=== PATIENT | female | born 1955 | race Caucasian/White ===

== ENCOUNTER → 2022-08-22 10:23 | Outpatient (CLI) | payer MEDICARE, MEDICAID, SELFPAY ==
--- NOTE | 2022-08-22 | DI.ECHO.S_ITS ---
[place] [facility]---------+ [facility] +---------+ : : [address] : [address] : : : : [id number] : : : : Phone: [phone]---------+ Echocardiogram Report + + :Name: TIKI MCCLENDON Study Date: 08/22/2022 Height: 66 in : :[facility] ReadingLocation: Weight: 129 lb : : Gender: Female BSA: 1.7 m2 : :: 1955 Age: 67 yrs BP: 125/81 mmHg: :Reason For Study: HYPERTENSION HR: 60 : :Ordering Physician: BAILEY, : :RED Performed By: TRENTON DUEÑAS : :Referring: RED AVALOS : + + Interpretation Summary The left ventricle is normal in size. The ejection fraction is estimated to be 65-70%. The right ventricle is normal in size and function. There is mild mitral regurgitation. The IVC is of normal diameter and collapses greater than 50% with a sniff. This suggests a low right atrial pressure of 3 mm Hg. Procedure: A two-dimensional transthoracic echocardiogram with color flow and Doppler was performed. The study quality was technically adequate. There is no prior echocardiogram noted for this patient. The patient was in normal sinus rhythm during the exam. Left Ventricle: The left ventricle is normal in size. Left ventricular wall thickness is mildly increased. There is no echo evidence for significant left ventricular outflow tract obstruction. There is no thrombus. Left ventricular systolic function is normal. The ejection fraction is estimated to be 65-70%. There are no focal wall motion abnormalities. Diastolic parameters suggest a relaxation abnormality of the left ventricle, consistent with probable normal filling pressures. Right Ventricle: The right ventricle is normal in size and function. Atria: The left atrial size is normal. The right atrium is mildly dilated. There is no Doppler evidence for an interatrial shunt. Mitral Valve: The mitral valve leaflets appear mildly thickened, but open well. There is no mitral valve stenosis. There is mild mitral regurgitation. Aortic Valve: The aortic valve is trileaflet. The aortic valve opens well. There is no aortic valve stenosis. No aortic regurgitation is present. Tricuspid Valve: The tricuspid valve is normal in structure and function. There is trace tricuspid regurgitation. The right ventricular systolic pressure is estimated to be at least 16 mmHg based on an estimated right atrial pressure of 3 mm Hg. Pulmonic Valve: The pulmonic valve is not well visualized. There is trace pulmonic regurgitation. Great Vessels: The aortic root is normal size. The ascending aorta is normal in size. The inferior vena cava appeared normal. The IVC is of normal diameter and collapses greater than 50% with a sniff. This suggests a low right atrial pressure of 3 mm Hg. Pericardium/ Pleura There is no pericardial effusion. There is no pleural effusion. MMode/2D Measurements & Calculations LVIDd: 4.1 cm LVOT diam: 2.0 cm LVIDs: 2.3 cm Ao root diam: 3.2 cm FS: 43.9 % IVSd: 0.80 cm LVPWd: 1.1 cm LV cordova. diameter/BSA (cm/m^2): 2.5 LV sys. diameter/BSA (cm/m^2): 1.4 LA A2 area: 16.3 cm2 RA long axis: 4.9 cm LA A4 area: 10.4 cm2 LA length (vol): 5.3 cm LA vol: 27.3 ml LA vol index: 16.4 ml/m2 RVD1 (basal): 3.5 cm LVLs ap4: 5.7 cm LVLd ap2: 7.3 cm TAPSE_phl: 2.4 cm LVLs ap2: 5.6 cm Doppler Measurements & Calculations Ao V2 max: 164.0 cm/sec LVOT Max James: 161.0 cm/sec Ao V2 mean: 96.9 cm/sec LV V1 max P.4 mmHg Ao max P.0 mmHg LV V1 VTI: 32.4 cm Ao mean P.0 mmHg GABE(I,D): 3.0 cm2 Ao V2 VTI: 34.3 cm GABE(V,D): 3.1 cm2 sev ratio: 0.94 GABE indexed to BSA (cm^2/m^2): 1.8 MV E max james: 63.8 cm/sec TR max james: 182.0 cm/sec MV A max james: 70.7 cm/sec TR max P.2 mmHg MV E/A: 0.90 PA V2 max: 103.0 cm/sec Med Peak E' James: 5.0 cm/sec PA V2 mean: 73.7 cm/sec E/E' med: 12.7 PA mean P.0 mmHg Lat Peak E' James: 6.7 cm/sec PA pr(Accel): 9.3 mmHg E/E' lat: 9.6 E/e' average: 11.1 MV dec time: 0.26 sec SV(LVOT): 101.8 ml AV VR_phl: 0.98 GABE(VTI)/BSA_phl: 1.8 MV P1/2t-pr_phl: 76.0 msec Reading Physician:03:45 PM
== END ==
PROVIDERS: Referring Provider Internal Medicine Cardiovascular Disease; Visit Provider Internal Medicine Cardiovascular Disease
DX: I34.0 Nonrheumatic mitral (valve) insufficiency (principal); I10 Essential (primary) hypertension; R60.0 Localized edema
CPT/HCPCS: 93306

== ENCOUNTER → 2022-10-20 07:29 | Outpatient (CLI) | payer MEDICARE, MEDICAID, SELFPAY ==
[2022-10-20 08:47] LABS: HEMOLYSIS < 15 (0-50); Iron 159 ug/dL (37-170)
[2022-10-20 08:49] LABS: Creatinine Urine Random 13.4 mg/dL
[2022-10-20 08:50] LABS: Alanine Aminotransferase 22 IU/L (<35); Albumin 4.4 g/dL (3.5-5.0); Albumin Globulin Ratio 1.7 (1.0-2.8); Alkaline Phosphatase 61 U/L (38-126); Aspartate Aminotransferase 28 IU/L (14-36); BUN Creatinine Ratio 13.1 (6-22); Bilirubin Total 0.7 mg/dL (0.2-1.3); Blood Urea Nitrogen 8 mg/dL (7-17); Calcium 9.2 mg/dL (8.4-10.2); Carbon Dioxide 29 mmol/L (22-32); Chloride 101 mmol/L (98-107); Cholesterol 173 mg/dL (140-199); Estimated Glomerular Filt Rate > 60 mL/min (>60); Globulin 2.6 g/dL (1.7-4.1); Glucose 86 mg/dL (80-110); HDL Cholesterol 61 mg/dL (40-60); HEMOLYSIS < 15 (0-50); LDL Cholesterol Calculated 103 mg/dL (<100); Potassium 3.6 mmol/L (3.4-5.1); Sodium 138 mmol/L (137-145); Triglycerides 46 mg/dL (35-150)
[2022-10-20 08:58] LABS: Percent Iron Saturation 56 % (15-50); Total Iron Binding Capacity 286 ug/dL (265-497); Transferrin 212 mg/dL (206-381)
[2022-10-20 09:19] LABS: Ferritin 61 ng/mL (11-264)
[2022-10-20 09:29] LABS: Microalbumin Urine Random < 0.6 mg/dL (0-1.6)
[2022-10-20 09:34] LABS: Vitamin B12 906 pg/mL (239-931)
[2022-10-20 09:55] LABS: Add Manual Diff / Slide Review NO; Basophils Absolute Auto 0 /uL (0-100); Basophils Percent Auto 0.8 % (0-2); Eosinophils Absolute Auto 0 /uL (0-450); Hematocrit 41.2 % (36-46); Hemoglobin 13.9 g/dL (12.0-16.0); Lymphocytes Absolute Auto 1200 /uL (1100-4500); Lymphocytes Percent Auto 33.2 % (25-40); Mean Corpuscular HGB Conc 33.7 % (30-36); Mean Corpuscular Hemoglobin 29.8 PG (26-34); Mean Corpuscular Volume 88.3 fL (80-100); Monocytes Absolute Auto 400 /uL (0-900); Monocytes Percent Auto 10.8 % (3-14); Neutrophils Absolute Auto 2000 /uL (1500-7000); Neutrophils Percent Auto 54.2 % (50-75); Platelet Count 231 X10^3/uL (150-400); Red Blood Cell Count 4.67 X10^6/uL (4.0-5.2); Red Cell Distribution Width 12.8 % (11.6-14.8); White Blood Cell Count 3.8 X10^3/uL (4.5-11.0)
[2022-10-27 10:43] LABS: Metanephrine,Plasma 25.2 pg/mL (0.0-88.0)
== END ==
PROVIDERS: Referring Provider Internal Medicine Cardiovascular Disease; Visit Provider Internal Medicine Cardiovascular Disease
DX: I10 Essential (primary) hypertension (principal); E61.1 Iron deficiency; G25.81 Restless legs syndrome; Z79.890 Hormone replacement therapy; R79.89 Other specified abnormal findings of blood chemistry
CPT/HCPCS: 36415; 80053; 80061; 82043; 82088; 82570; 82607; 82728; 83540; 83550; 83835; 85025

== ENCOUNTER → 2022-11-01 09:47 | Outpatient (CLI) | payer MEDICARE, MEDICAID, SELFPAY ==
--- NOTE | 2022-11-01 | DI.RAD.S_ITS ---
Bone Density Report Name: TIKI MCCLENDON Age: 67 Sex: Female Ethnicity: White Date of : 1955 Indication: postmenopausal; screening for osteoporosis; Referring Provider: KEELEY ANGELA Study: Bone densitometry was performed. Exam Date: November 01, 2022 Accession number: [id number] Bone Density: Region BMD T-score Z-score Classification AP Spine(L1-L4) 1.227 1.6 3.4 Normal Femoral Neck (Left) 0.881 0.3 1.8 Normal Total Hip (Left) 1.055 0.9 2.2 Normal Femoral Neck (Right) 0.860 0.1 1.6 Normal Total Hip (Right) 0.970 0.2 1.5 Normal Total Hip Mean 1.012 0.6 1.9 Normal World Health Organization criteria for BMD impression classify patients as: Normal (T-score at or above -1.0), Osteopenia (T-score between -1.0 and -2.5), or Osteoporosis (T-score at or below -2.5). 10-year Fracture Risk: FRAX not reported because: All T-scores for Spine Total, Hip Total, Femoral Neck at or above -1.0 Impression: The patient has normal bone mass. Discussion: BONE DENSITY IS ABOVE THE MINIMUM DESIRABLE LEVEL AT ALL SKELETAL SITES TESTED. This patient's bone mineral density is above the minimum desirable level (T-score -1.0 or better) at all sites measured. The patient should follow a healthful lifestyle (good nutrition with adequate calcium and vitamin D, and appropriate weight-bearing exercise). Follow-Up: Consider repeating this study in 5 years or sooner if there is some new clinical indication. Reported by: ALONSO RUTHERFORD M.D. on 11/01/2022 10:21:00 AM.
== END ==
PROVIDERS: Referring Provider Family Medicine; Visit Provider Family Medicine
DX: Z78.0 Asymptomatic menopausal state (principal); Z13.820 Encounter for screening for osteoporosis
CPT/HCPCS: 77080

== ENCOUNTER → 2023-11-10 07:04 | Outpatient (CLI) | payer MEDICARE, OTHER, SELFPAY ==
[2023-11-10 09:16] LABS: Cholesterol 204 mg/dL (140-199); HDL Cholesterol 78 mg/dL (40-60); LDL Cholesterol Calculated 113 mg/dL (<100); Triglycerides 65 mg/dL (35-150)
== END ==
DX: E78.5 Hyperlipidemia, unspecified (principal)
CPT/HCPCS: 36415; 80061

== ENCOUNTER → 2024-09-11 09:34 | Outpatient (CLI) | payer MEDICARE, SELFPAY ==
[2024-09-11 11:55] LABS: Free T3, Triiodothyronine Free 3.98 pg/mL (2.77-5.27); Free T4, Direct Thyroxine 0.73 ng/dL (0.78-2.19)
[2024-09-11 12:09] LABS: Thyroid Stimulating Hormone 0.615 uIU/mL (0.47-4.68)
== END ==
PROVIDERS: PCP Family Medicine; Referring Provider Internal Medicine Endocrinology, Diabetes & Metabolism; Visit Provider Internal Medicine Endocrinology, Diabetes & Metabolism
DX: E03.9 Hypothyroidism, unspecified (principal)
CPT/HCPCS: 36415; 84439; 84443; 84481

== ENCOUNTER → 2024-09-12 07:30 | Outpatient (CLI) | payer MEDICARE, SELFPAY ==
[2024-09-12 08:06] LABS: Add Manual Diff / Slide Review NO; Basophils Absolute Auto 0 /uL (0-100); Basophils Percent Auto 0.5 % (0-2); Eosinophils Absolute Auto 0 /uL (0-450); Eosinophils Percent Auto 0.6 % (2-4); Hematocrit 41.7 % (36-46); Lymphocytes Absolute Auto 1100 /uL (1100-4500); Lymphocytes Percent Auto 24.6 % (25-40); Mean Corpuscular HGB Conc 33.6 % (30-36); Mean Corpuscular Hemoglobin 30.2 PG (26-34); Mean Corpuscular Volume 89.6 fL (80-100); Monocytes Absolute Auto 300 /uL (0-900); Monocytes Percent Auto 7.7 % (3-14); Neutrophils Absolute Auto 2900 /uL (1500-7000); Neutrophils Percent Auto 66.6 % (50-75); Platelet Count 217 X10^3/uL (150-400); Red Blood Cell Count 4.65 X10^6/uL (4.0-5.2); Red Cell Distribution Width 13.3 % (11.6-14.8); White Blood Cell Count 4.3 X10^3/uL (4.5-11.0)
[2024-09-12 08:36] LABS: HEMOLYSIS < 15 (0-50); Iron 138 ug/dL (37-170)
[2024-09-12 08:38] LABS: Alanine Aminotransferase 17 IU/L (<35); Albumin 4.3 g/dL (3.5-5.0); Albumin Globulin Ratio 2.2 (1.0-2.8); Alkaline Phosphatase 46 U/L (38-126); Aspartate Aminotransferase 21 IU/L (14-36); BUN Creatinine Ratio 13.8 (6-22); Bilirubin Total 0.8 mg/dL (0.2-1.3); Blood Urea Nitrogen 8 mg/dL (7-17); Calcium 9.3 mg/dL (8.4-10.2); Carbon Dioxide 29 mmol/L (22-32); Chloride 103 mmol/L (98-107); Cholesterol 169 mg/dL (140-199); Estimated Glomerular Filt Rate > 60 mL/min (>60); Glucose 86 mg/dL (80-110); HDL Cholesterol 59 mg/dL (40-60); HEMOLYSIS < 15 (0-50); LDL Cholesterol Calculated 100 mg/dL (<100); Potassium 3.8 mmol/L (3.4-5.1); Sodium 137 mmol/L (137-145); Total Protein 6.3 g/dL (6.3-8.2); Triglycerides 50 mg/dL (35-150)
[2024-09-12 08:46] LABS: Percent Iron Saturation 58 % (15-50); Total Iron Binding Capacity 238 ug/dL (265-497); Transferrin 177 mg/dL (206-381)
[2024-09-12 08:47] LABS: Vitamin D 25 Hydroxy (D3) 55.2 ng/mL (30.0-100.0)
[2024-09-12 09:08] LABS: Ferritin 69 ng/mL (11-264)
[2024-09-12 09:24] LABS: Vitamin B12 813 pg/mL (239-931)
== END ==
PROVIDERS: PCP Family Medicine; Referring Provider Family Medicine; Visit Provider Family Medicine
DX: I10 Essential (primary) hypertension (principal); Z86.2 Personal history of diseases of the blood and blood-forming organs and certain disorders involving the immune mechanism; E55.9 Vitamin D deficiency, unspecified; E78.5 Hyperlipidemia, unspecified; E03.9 Hypothyroidism, unspecified; Z78.9 Other specified health status; E53.8 Deficiency of other specified B group vitamins; E61.1 Iron deficiency
CPT/HCPCS: 36415; 80053; 80061; 82306; 82607; 82728; 83540; 83550; 85025

== ENCOUNTER → 2024-10-10 11:21 | Outpatient (CLI) | payer MEDICARE, SELFPAY ==
[2024-10-11 07:41] LABS: CRP, High Sensitivity 1.09 mg/L (0.00-3.00)
== END ==
PROVIDERS: PCP Family Medicine; Referring Provider Family Medicine; Visit Provider Family Medicine
DX: E78.5 Hyperlipidemia, unspecified (principal); Z78.9 Other specified health status
CPT/HCPCS: 36415; 86140

== ENCOUNTER → 2024-11-05 14:26 | Outpatient (CLI) | payer MEDICARE, SELFPAY ==
--- NOTE | 2024-11-05 14:27 | DI.MG.S_ITS ---
MM screening mammo BI: 11/05/2024. BI-RADS: 1 CLINICAL: 69-year old female for bilateral screening mammogram. Tyrer-Cuzick lifetime risk of 6.9%. No personal or first-degree family history of breast cancer. PRIOR EXAMS OS 11-06-23, 10-04-22, 12-20-21. MAMMOGRAPHY TECHNIQUE: 2D and 3D (tomosynthesis) digital mammographic views obtained, with additional images as needed for full coverage. Current study was also evaluated with a Computer Aided Detection (CAD) system. DENSITY C. The breasts are heterogeneously dense, which may obscure small masses. MAMMOGRAPHY FINDINGS Bilateral: No suspicious mass, asymmetry, microcalcification, or other abnormality seen. IMPRESSION: * No evidence of malignancy. RECOMMENDATIONS Bilateral * Annual screening mammography. OVERALL ASSESSMENT CATEGORY BI-RADS-1: Negative. The [employer] recommends annual screening mammography beginning at age 40 for women with average risk of breast cancer. ELECTRONICALLY SIGNED: Manoj Jackson M.D. on 11/06/2024 at 11:25:56 AM PT Interpreting Station ID: [id number]
--- NOTE | 2024-11-05 14:27 | DI.RAD.S_ITS ---
PROCEDURE: XR DEXA AXIAL SKELETON INDICATIONS: evaluation post menopause COMPARISON: [facility], CR, XR DEXA AXIAL SKELETON, 11/01/2022, 10:08. FINDINGS: Lumbar Spine: Bone mineral density 1.222 (previously 1.227) g/cm2, T score 1.6 (previously 1.6). Left Femoral Neck: Bone mineral density 0.935 (previously 0.881) g/cm2, T score 0.8 (previously 0.3). Left Hip: Bone mineral density 1.051 (previously 1.055) g/cm2, T score 0.9 (previously 0.9). Fracture Risk Calculation (when applicable): 10-year fracture risk of a major osteoporotic fracture 5.5 percent and of a hip fracture 0.1 percent. (T score greater or equal to -1.0 to: NORMAL) (T score from -1.1 to -2.4: OSTEOPENIA) (T score less than or equal to -2.5: OSTEOPOROSIS) IMPRESSION: Normal--- recommend repeat DEXA as clinically indicated. Follow-up guidelines as follows: Osteoporosis: Consider a repeat DEXA and Vertebral Fracture Assessment (VFA) exam in 2 years or sooner if medically necessary, to reassess this patient's status. Osteopenia: Consider a repeat DEXA in 2-3 years to reassess this patient's status, or if there is a new clinical indication. Normal: Consider a repeat DEXA in 5 years or sooner, or if there is a new clinical indication. All treatment decisions require clinical judgment and consideration of individual patient factors, including patient preferences, comorbidities, previous drug use, risk factors not captured in the FRAX model (e.g., frailty, falls, vitamin D deficiency, increased bone turnover, interval significant decline in bone density ) and possible under- or over-estimation of fracture risk by FRAX. In addition, the NOF Guide recommends that FDA-approved medical therapies be considered in postmenopausal women and men age >= 50 years with a: * Hip or vertebral (clinical or morphometric) fracture * T-score of <=-2.5 at the spine or hip * Ten-year fracture probability by FRAX of >= 3% for hip fracture or >=20% for major osteoporotic fracture. Dictated by: Adrian Hamilton M.D. on 11/05/2024 at 19:30 Approved by: Adrian Hamilton M.D. on 11/05/2024 at 19:33
== END ==
PROVIDERS: PCP Family Medicine; Referring Provider Family Medicine; Visit Provider Family Medicine
DX: Z12.31 Encounter for screening mammogram for malignant neoplasm of breast (principal); N95.9 Unspecified menopausal and perimenopausal disorder; R92.333 Mammographic heterogeneous density, bilateral breasts
CPT/HCPCS: 77063; 77067; 77080

== ENCOUNTER → 2024-11-28 09:42 | Outpatient (CLI) | payer MEDICARE, SELFPAY ==
[2024-11-28 11:01] LABS: Free T3, Triiodothyronine Free 4.45 pg/mL (2.77-5.27); Free T4, Direct Thyroxine 0.84 ng/dL (0.78-2.19)
[2024-11-28 11:15] LABS: TSH w/ Reflex to FT4 0.62 uIU/mL (0.47-4.68)
== END ==
PROVIDERS: Internal Medicine Endocrinology, Diabetes & Metabolism; PCP Family Medicine; Referring Provider Family Medicine; Visit Provider Family Medicine
DX: E09.9 Drug or chemical induced diabetes mellitus without complications (principal)
CPT/HCPCS: 36415; 84439; 84443; 84481

== ENCOUNTER → 2024-12-12 10:19 | Outpatient (CLI) | payer MEDICARE, SELFPAY ==
[2024-12-12 11:06] LABS: Alanine Aminotransferase 16 IU/L (<35); Albumin 4.4 g/dL (3.5-5.0); Albumin Globulin Ratio 2.1 (1.0-2.8); Alkaline Phosphatase 64 U/L (38-126); Blood Urea Nitrogen 8 mg/dL (7-17); Calcium 9.6 mg/dL (8.4-10.2); Carbon Dioxide 28 mmol/L (22-32); Chloride 102 mmol/L (98-107); Estimated Glomerular Filt Rate > 60 mL/min (>60); Globulin 2.1 g/dL (1.7-4.1); Glucose 91 mg/dL (70-99); HEMOLYSIS < 15 (0-50); Potassium 4.1 mmol/L (3.4-5.1); Sodium 136 mmol/L (137-145); Total Protein 6.5 g/dL (6.3-8.2)
== END ==
PROVIDERS: PCP Family Medicine; Referring Provider Family Medicine; Visit Provider Family Medicine
DX: I10 Essential (primary) hypertension (principal); E78.5 Hyperlipidemia, unspecified; E03.9 Hypothyroidism, unspecified
CPT/HCPCS: 36415; 80053

== ENCOUNTER → 2024-12-18 14:35 | Outpatient (CLI) | payer MEDICARE, SELFPAY ==
[2024-12-18 15:17] LABS: Add Manual Diff / Slide Review NO; Hematocrit 42.5 % (36-46); Hemoglobin 14.6 g/dL (12.0-16.0); Lymphocytes Absolute Auto 1800 /uL (1100-4500); Mean Corpuscular HGB Conc 34.5 % (30-36); Mean Corpuscular Hemoglobin 30.6 PG (26-34); Mean Corpuscular Volume 88.8 fL (80-100); Platelet Count 263 X10^3/uL (150-400)
== END ==
LOC: LAB 14:38
PROVIDERS: PCP Family Medicine; Referring Provider Family Medicine; Visit Provider Family Medicine
DX: E03.9 Hypothyroidism, unspecified (principal); R53.83 Other fatigue; Z78.0 Asymptomatic menopausal state
CPT/HCPCS: 36415; 85025

== ENCOUNTER → 2025-03-13 11:45 | Outpatient (CLI) | payer MEDICARE, SELFPAY ==
[2025-03-13 13:18] LABS: Free T3, Triiodothyronine Free 4.56 pg/mL (2.77-5.27); Free T4, Direct Thyroxine 0.99 ng/dL (0.78-2.19)
[2025-03-13 13:31] LABS: TSH w/ Reflex to FT4 0.29 uIU/mL (0.47-4.68)
== END ==
PROVIDERS: PCP Family Medicine; Referring Provider Internal Medicine Endocrinology, Diabetes & Metabolism; Visit Provider Internal Medicine Endocrinology, Diabetes & Metabolism
DX: E03.9 Hypothyroidism, unspecified (principal)
CPT/HCPCS: 36415; 84439; 84443; 84481

== ENCOUNTER → 2025-03-27 14:53 | Outpatient (CLI) | payer MEDICARE, SELFPAY ==
[2025-03-27 15:37] LABS: Alanine Aminotransferase 20 IU/L (<35); Albumin 4.4 g/dL (3.5-5.0); Albumin Globulin Ratio 1.8 (1.0-2.8); Alkaline Phosphatase 66 U/L (38-126); Blood Urea Nitrogen 9 mg/dL (7-17); Calcium 9.7 mg/dL (8.4-10.2); Carbon Dioxide 30 mmol/L (22-32); Chloride 99 mmol/L (98-107); Estimated Glomerular Filt Rate > 60 mL/min (>60); Globulin 2.4 g/dL (1.7-4.1); Glucose 96 mg/dL (70-99); HEMOLYSIS < 15 (0-50); Potassium 4.2 mmol/L (3.4-5.1); Sodium 134 mmol/L (137-145); Total Protein 6.8 g/dL (6.3-8.2)
[2025-03-27 16:10] LABS: Ferritin 89 ng/mL (11-264)
[2025-03-27 16:59] LABS: Vitamin B12 Reflex MMA if <400 891 pg/mL (239-931)
== END ==
PROVIDERS: PCP Family Medicine; Referring Provider Family Medicine; Visit Provider Family Medicine
DX: I10 Essential (primary) hypertension (principal); Z78.9 Other specified health status
CPT/HCPCS: 36415; 80053; 82607; 82728

== ENCOUNTER → 2025-05-13 11:11 | Outpatient (CLI) | payer MEDICARE, SELFPAY ==
[2025-05-13 12:41] LABS: Free T3, Triiodothyronine Free 3.76 pg/mL (2.77-5.27); Free T4, Direct Thyroxine 0.96 ng/dL (0.78-2.19)
[2025-05-13 12:55] LABS: Thyroid Stimulating Hormone 1.23 uIU/mL (0.47-4.68)
== END ==
PROVIDERS: PCP Family Medicine; Referring Provider Internal Medicine Endocrinology, Diabetes & Metabolism; Visit Provider Internal Medicine Endocrinology, Diabetes & Metabolism
DX: E03.9 Hypothyroidism, unspecified (principal); E11.69 Type 2 diabetes mellitus with other specified complication
CPT/HCPCS: 36415; 84439; 84443; 84481